=== PATIENT | female | born 1965 | race Two or more races ===

== ENCOUNTER 2017-07-17 06:10 | Day surgery (SDC) | payer OTHER ==
[~2017-07-17 06:10] MED LIST: CATAFLAM50 MG PO; SYNTHROID125 MCG PO; SYNTHROID137 MCG PO; TAMOXIFEN CITRA MC; VASOFLEX FORTE1 CAP PO; VITAMIN D2000 UNIT PO
== END 2017-07-17 10:45 | disposition home or self-care (01) ==
LOC: CIR.AMB 06:10
DX: C50.012 Malignant neoplasm of nipple and areola, left female breast (principal); Z90.12 Acquired absence of left breast and nipple

== ENCOUNTER 2017-10-02 13:38 | Outpatient (CLI) | payer OTHER | END 2017-10-02 13:50 | disposition home or self-care (01) | LOC: NUCLEAR 13:38 | DX: R42 Dizziness and giddiness (principal) ==

== ENCOUNTER 2017-11-25 09:01 | Outpatient (CLI) | payer OTHER | END 2017-11-25 09:27 | disposition home or self-care (01) | LOC: SONOGRAMA 09:01 | DX: D05.12 Intraductal carcinoma in situ of left breast (principal); N63.24 Unspecified lump in the left breast, lower inner quadrant ==

== ENCOUNTER 2017-11-25 09:16 | Outpatient (CLI) | payer OTHER | END 2017-11-25 14:08 | disposition home or self-care (01) | LOC: LAB 09:16 | DX: D64.89 Other specified anemias (principal); E11.9 Type 2 diabetes mellitus without complications; E78.2 Mixed hyperlipidemia; K76.89 Other specified diseases of liver; E03.8 Other specified hypothyroidism; E55.9 Vitamin D deficiency, unspecified; R29.898 Other symptoms and signs involving the musculoskeletal system ==

== ENCOUNTER 2017-12-14 06:45 | Day surgery (SDC) | payer OTHER | END 2017-12-14 11:10 | disposition home or self-care (01) | LOC: CIR.AMB 06:45 | DX: T85.898A Other specified complication of other internal prosthetic devices, implants and grafts, initial encounter (principal); Z90.12 Acquired absence of left breast and nipple ==

== ENCOUNTER 2018-06-02 10:52 | Outpatient (CLI) | payer OTHER | END 2018-06-02 12:19 | disposition home or self-care (01) | LOC: LAB 10:52 | DX: D64.9 Anemia, unspecified (principal); R74.0 Nonspecific elevation of levels of transaminase and lactic acid dehydrogenase [LDH]; E55.0 Rickets, active; E72.89 Other specified disorders of amino-acid metabolism ==

== ENCOUNTER 2018-06-03 14:28 | Outpatient (CLI) | payer OTHER | END 2018-06-04 15:24 | disposition home or self-care (01) | LOC: MAMO-SONO 14:28 | DX: N60.11 Diffuse cystic mastopathy of right breast (principal); N60.12 Diffuse cystic mastopathy of left breast ==

== ENCOUNTER 2018-10-25 14:23 | Outpatient (CLI) | payer OTHER | END 2018-10-25 15:18 | disposition home or self-care (01) | LOC: LAB 14:23 | DX: A49.3 Mycoplasma infection, unspecified site (principal) ==

== ENCOUNTER 2018-11-04 14:47 | Outpatient (CLI) | payer OTHER | END 2018-11-04 14:48 | disposition home or self-care (01) | LOC: RAD 14:47 | DX: M79.644 Pain in right finger(s) (principal) ==

== ENCOUNTER 2018-11-16 10:26 | Outpatient (CLI) | payer OTHER | END 2018-11-16 10:33 | disposition home or self-care (01) | LOC: LAB 10:26 | DX: D64.89 Other specified anemias (principal); E11.8 Type 2 diabetes mellitus with unspecified complications; E78.00 Pure hypercholesterolemia, unspecified; I10 Essential (primary) hypertension; E03.8 Other specified hypothyroidism; E55.9 Vitamin D deficiency, unspecified; R74.0 Nonspecific elevation of levels of transaminase and lactic acid dehydrogenase [LDH]; C50.419 Malignant neoplasm of upper-outer quadrant of unspecified female breast; Z17.0 Estrogen receptor positive status [ER+] ==

== ENCOUNTER 2018-11-16 11:51 | Outpatient (CLI) | payer OTHER | END 2018-11-16 11:54 | disposition home or self-care (01) | LOC: SONOGRAMA 11:51 | DX: N60.11 Diffuse cystic mastopathy of right breast (principal); N60.12 Diffuse cystic mastopathy of left breast ==

== ENCOUNTER 2018-11-26 11:26 | Outpatient (CLI) | payer OTHER | END 2018-11-26 11:32 | disposition home or self-care (01) | LOC: SONOGRAMA 11:26 | DX: D05.12 Intraductal carcinoma in situ of left breast (principal); N60.11 Diffuse cystic mastopathy of right breast; N60.12 Diffuse cystic mastopathy of left breast ==

== ENCOUNTER 2020-06-07 13:57 | Outpatient (CLI) | payer OTHER | END 2020-06-07 14:15 | disposition home or self-care (01) | LOC: MAMO-SONO 13:57 | PROVIDERS: ATTEND Surgery | DX: N64.59 Other signs and symptoms in breast (principal); N60.11 Diffuse cystic mastopathy of right breast; N60.12 Diffuse cystic mastopathy of left breast; D05.12 Intraductal carcinoma in situ of left breast ==